=== PATIENT | female | born 1975 | race Hispanic/Latino ===

== ENCOUNTER 2018-10-08 20:24 | Emergency (ER) | payer OTHER ==
[~2018-10-08] VITALS: Ht 157.5 cm; Wt 81.6 kg
--- OUTSIDE RECORDS SUMMARY | 2018-10-08 20:27 | XMS REPORT | Clinical Summary ---
Author Author [facility] Address Unknown Phone Unavailable Care Team Providers Care Candy Counter Clerk Name Role Phone Asked, No Pcp PCP Unavailable Allergies Comments Active Allergy Reactions Severity Noted Date "can't move" Codeine 06/13/2018 Headache Tramadol 06/13/2018 Medications End Date Status Medication Sig Dispensed Refills Start Date Active diazePAM (VALIUM) 5 MG 0 tablet 8 Active keTOROlac (TORadol) 10 mg 0 tablet 8 Active levocetirizine (XYZAL) 5 Take 5 mg by 0 MG tablet mouth every evening. Active Problems No known active problems Encounters Care Team Description Date Type Specialty Qiana Frank CRNA 06/13/2018 Anesthesia General Surgery Event Amandeep Ceballos MD Exam Under Anesthesia For Bleeding 06/13/2018 Surgery General Surgery Amandeep Ceballos MD 06/13/2018 Hospital General Surgery Encounter after 10/07/2017 Social History Date Tobacco Use Types Packs/Day Years Used Never Smoker Smokeless Tobacco: Never Used Alcohol Use Drinks/Week oz/Week Comments No Sex Assigned at Date Recorded Not on file Industry Job Start Date Occupation Not on file Not on file Not on file Travel End Travel History Travel Start No recent travel history available. Last Filed Vital Signs Time Taken Vital Sign Reading 06/13/2018 9:16 PM CDT Blood Pressure 136/86 06/13/2018 9:16 PM CDT Pulse 55 06/13/2018 9:16 PM CDT Temperature 36.6 C (97.8 F) 06/13/2018 9:16 PM CDT Respiratory Rate 16 06/13/2018 9:16 PM CDT Oxygen Saturation 99% - Inhaled Oxygen - Concentration 06/13/2018 12:49 PM CDT Weight 85.8 kg (189 lb 1.6 oz) 06/13/2018 12:49 PM CDT Height 157.5 cm (5' 2") 06/13/2018 12:49 PM CDT Body Mass Index 34.59 Plan of Treatment Not on file Procedures Comments Procedure Name Priority Date/Time Associated Diagnosis ANESTHESIA INTUBATION Routine 06/13/2018 6:06 PM CDT Procedure Note - Qiana Frank, INSPECTOR BICYCLE - 06/13/2018 6:06 PM CDT Airway Date/Time: 06/13/2018 5:49 PM Performed by: QIANA FRANK Authorized by: JESÚS DAVIES Location: [place] Difficult Airway: No Anesthesio logist: JESÚS DAVIES Resident/C RNA/AA: QIANA FRANK Performed by: resident/C RNA/AA Preoxygena jaguar with 100% O2: Yes C-spine Precaution s Maintained Throughout : Yes Mask Ventilatio n: Not attempted Final Airway Type: Supraglott ic airway Final LMA: Ambu LMA Size: 4 Number of Attempts at Approach: 1 Smooth LMA placement. Lips and teeth remain intact after placement BIOPSY, RECTAL 06/13/2018 Exam Under Anesthesia 5:05 PM CDT Treatment Biopsy For Bleeding after 10/07/2017 Results Not on fileafter 10/07/2017 Insurance Payer Benefit Subscriber ID Type Phone Address Plan / Group [facility] xxxxxxxxx HMO/PPO THCARE CHOICE/CHO ICE + Advance Directives Patient has advance care planning documents on file. For more information, aura navas contact: Jose Hwang [address] [place] [address]
--- OUTSIDE RECORDS SUMMARY | 2018-10-08 20:27 | XMS REPORT ---
[facility] Address Unknown Phone Unavailable Care Team Providers Care Obstetrics Tech Name Role Phone Unavailable Unavailable Payers Payer Name Policy Type Policy Number Effective Date Expiration Date Problems This patient has no known problems. Allergies, Adverse Reactions, Alerts Allergy Name Allergy Type Status Severity Reaction(s) Onset Date Inactive Date Treating Clinician Comments morphine DA Active U 2018-09-19 00:00:00 codeine DA Active MO 2014-03-14 00:00:00 Medications This patient has no known medications.
[2018-10-08] MEDS ORDERED: HYDROCODONE/APAP 10MG-325MG TAB PO ONE (20:45)
[2018-10-08 20:49] LABS: BASOPHILS # (AUTO) 0.1 (0.0-0.1); BASOPHILS % 0.9 % (0.0-1.0); EOSINOPHILS # (AUTO) 0.2 (0.0-0.4); EOSINOPHILS % 2.6 % (0.0-6.0); HEMATOCRIT 41.5 % (34.2-44.1); HEMOGLOBIN 13.9 g/dL (12.0-16.0); LYMPHOCYTES # (AUTO) 2.9 (1.0-3.2); LYMPHOCYTES % 44.5 % (18.0-39.1); MEAN CORPUSCULAR HEMOGLOBIN 29.1 pg (28-32); MEAN CORPUSCULAR HGB CONC 33.5 g/dL (31-35); MEAN CORPUSCULAR VOLUME 86.8 fL (81-99); MONOCYTES # (AUTO) 0.5 (0.2-0.8); MONOCYTES % 8.1 % (4.4-11.3); NEUTROPHILS # (AUTO) 2.8 (2.1-6.9); NEUTROPHILS % 43.6 % (38.7-80.0); PLATELET COUNT 391 x10e3/uL (140-360); RED BLOOD COUNT 4.78 x10e6/uL (3.6-5.1); RED CELL DISTRIBUTION WIDTH 13.1 % (11.7-14.4)
[2018-10-08 21:04] LABS: CLARITY,URINE CLEAR (CLEAR); COLOR,URINE YELLOW (YELLOW); KETONES,URINE NEGATIVE (NEGATIVE); LEUKOCYTE ESTERASE ,URINE NEGATIVE (NEGATIVE); NITRITE,URINE NEGATIVE (NEGATIVE); PROTEIN,URINE DIPSTICK NEGATIVE (NEGATIVE)
[2018-10-08 21:05] LABS: BILIRUBIN,URINE NEGATIVE (NEGATIVE); URINE UROBILINOGEN 0.2 mg/dL (0.2 - 1)
[2018-10-08 21:08] LABS: ALANINE AMINOTRANSFERASE 30 IU/L (0-55); ALBUMIN 4.5 g/dL (3.5-5.0); ALBUMIN/GLOBULIN RATIO 1.5 (0.8-2.0); ALKALINE PHOSPHATASE 77 IU/L (40-150); ANION GAP 16.5 mmol/L (8-16); BLOOD UREA NITROGEN 14 mg/dL (7-26); BUN/CREATININE RATIO 19 (6-25); CALCIUM 8.9 mg/dL (8.4-10.2); CARBON DIOXIDE 22 mmol/L (22-29); CHLORIDE 104 mmol/L (98-107); CREATININE, SERUM 0.72 mg/dL (0.57-1.11); EST GLOMERULAR FILTRATION RATE > 60 ML/MIN (60-); GLUCOSE 96 mg/dL (74-118); POTASSIUM 3.5 mmol/L (3.5-5.1); SODIUM 139 mmol/L (136-145)
[2018-10-08 21:12] LABS: BACTERIA,URINE MODERATE /HPF; EPITHELIAL CELLS,URINE FEW /LPF
[2018-10-08] MEDS ORDERED: SODIUM CHLORIDE 0.9% 50ML 50 ML ONE ×2 (22:15→22:16)
[2018-10-08] MEDS ORDERED: IOPAMIDOL 370 MG/ML 200 ML INFUS..BTL INJ ONE (22:16)
--- NOTE | 2018-10-08 22:39 | Diagnostic Imaging Report ---
EXAM: CT ABDOMEN AND PELVIS with IV CONTRAST INDICATION: Fallopian tube removed 2 weeks ago, fall today, abdominal pain, lower abdomen and back COMPARISON: None TECHNIQUE: The abdomen and pelvis were scanned using a multidetector helical scanner. Coronal and sagittal reformations were obtained. Dose modulation, iterative reconstruction, and/or weight based adjustment of the mA/kV was utilized to reduce the radiation dose to as low as reasonably achievable. Routine protocol performed. IV Contrast: 100 cc Isovue-370 Oral Contrast: Water FINDINGS: LOWER THORAX: No consolidations LIVER: No masses BILIARY: Cholelithiasis without findings of cholecystitis. SPLEEN: No masses PANCREAS: No masses ADRENALS: No nodules KIDNEYS: Symmetric perfusion. No enhancing masses. No hydronephrosis. GI TRACT: No distention, wall thickening or evidence of obstruction. The appendix is not identified. VESSELS: Unremarkable PERITONEUM/RETROPERITONEUM: Small volume simple free fluid in the pelvis. LYMPH NODES: No lymphadenopathy REPRODUCTIVE ORGANS: The uterus and ovaries are unremarkable. Incidental right ovarian 2 cm corpus luteal cyst. The right round ligament is minimally thickened compared to the left, likely due to recent surgery. BLADDER: Unremarkable SOFT TISSUES: Unremarkable BONES: No suspicious bone lesions. IMPRESSION: No CT findings to explain patient's acute symptoms. No evidence of a traumatic injury. Expected postsurgical changes in the pelvis. Cholelithiasis without evidence of acute cholecystitis. Signed by: Dr. Yu Quezada M.D. on 10/08/2018 10:36 PM
[2018-10-08 22:45] VITALS: BP 152/78
== END 2018-10-08 23:14 | disposition home or self-care (01) ==
LOC: ER 20:24
DX: G89.11 Acute pain due to trauma (principal); R10.30 Lower abdominal pain, unspecified; W01.0XXA Fall on same level from slipping, tripping and stumbling without subsequent striking against object, initial encounter; Z98.890 Other specified postprocedural states
CPT/HCPCS: 36415; 74177; 80053; 81001; 85025; 87086; 99284; Q9967

== ENCOUNTER 2019-07-21 13:22 | Emergency (ER) | payer OTHER ==
[~2019-07-21] VITALS: Ht 157.5 cm; Wt 83.0 kg
--- OUTSIDE RECORDS SUMMARY | 2019-07-21 13:24 | XMS REPORT | Clinical Summary ---
Author Author [facility] Address Unknown Phone Unavailable Care Team Providers Care Chairman & Co Founder Name Role Phone Asked, No Pcp PCP [...] evening. Active Problems No known active problems Social History Date Tobacco Use Types Packs/Day Years Used Never Smoker Smokeless Tobacco: Never Used Drinks/Week oz/Week Comments Alcohol Use No Sex Assigned at Date Recorded Not on file Industry Job Start Date Occupation Not on file Not on file Not on file Travel End Travel History Travel Start No recent travel history available. Last Filed Vital Signs Not on file Plan of Treatment Not on file Results Not on fileafter 07/20/2018 Insurance Type Payer Benefit Subscriber ID Effective Phone Address Plan / Dates Group [facility]P THCARE resent CHOICE/CHO ICE + Advance Directives For more information, please contact: [phone] Patient Retail Wireless Sales Representative Explanation Type Date Recorded Advance Directives, Living Will and Medical Power of Stagecraft Professor
[2019-07-21] MEDS ORDERED: KETOROLAC TROMETHAMINE 60 MG/2 ML VIAL ONE (13:40)
[2019-07-21] MEDS: KETOROLAC TROMETHAMINE 60 MG/2 ML VIAL IM ONE (13:41)
[2019-07-21] MEDS ORDERED: ONDANSETRON HCL 4 MG ORAL DISINTEGRATING TAB ONE (13:43)
[2019-07-21] MEDS: ONDANSETRON HCL 4 MG ORAL DISINTEGRATING TAB PO ONE (13:50)
--- NOTE | 2019-07-21 14:06 | Diagnostic Imaging Report ---
Exam: Right foot series, 3 views. Clinical History: Trauma to right foot today, particularly third and fourth toes Comparison: None. Findings: 3 views of the right foot. There is normal bone mineralization. Negative for acute, displaced fracture or dislocation. Joint spaces are preserved. No significant soft tissue swelling. Impression: 1. No acute abnormalities. Signed by: Dr. Ifeanyi Watson M.D. on 07/21/2019 2:02 PM
== END 2019-07-21 14:15 | disposition home or self-care (01) ==
LOC: FSED 13:22
DX: S90.121A Contusion of right lesser toe(s) without damage to nail, initial encounter (principal); W22.03XA Walked into furniture, initial encounter; Y92.009 Unspecified place in unspecified non-institutional (private) residence as the place of occurrence of the external cause
CPT/HCPCS: 73630; 99284; J1885; Q0162